=== PATIENT | female | born 1975 | race Caucasian/White ===

== ENCOUNTER 2022-03-04 07:43 | Emergency (ER) | payer OTHER ==
[~2022-03-04] VITALS: Ht 162.6 cm; Wt 106.8 kg
[2022-03-04 07:53] VITALS: BP 116/67
[2022-03-04 08:01] VITALS: BP 100/71
[2022-03-04] MEDS ORDERED: PREDNISONE1 MG PO (08:09)
[2022-03-04] MEDS ORDERED: ZPAK PO (08:09)
[2022-03-04] MEDS ORDERED: ROBITUSSIN AC10 ML PO (08:23)
[2022-03-04 08:29] LABS: HEMATOCRIT 38.6 % (37.0-47.0); HEMOGLOBIN 12.3 g/dl (12.0-16.0); IMMATURE GRANULOCYTES 0.3 % (0.0-5.0); MEAN CELL VOLUME 85.2 fL CALC (80.0-100.0); MEAN CORPUSCULAR HGB 27.2 pG CALC (26.0-32.0); MEAN CORPUSCULAR HGB CONC 31.9 g/dL CAL (32.0-36.0); NEUT# 2.3 thou/uL (2.00-7.15); RED BLOOD COUNT 4.53 mill/uL (4.20-5.60); RED CELL DISTRI WIDTH 14.8 % (11.5-15.5)
[2022-03-04 08:31] VITALS: BP 84/58
[2022-03-04 08:39] VITALS: BP 110/52
[2022-03-04 09:01] VITALS: BP 112/53
[2022-03-04 09:11] VITALS: BP 112/53
== END 2022-03-04 09:15 | disposition home or self-care (01) | DRG 179 ==
LOC: ED 07:43
PROVIDERS: Family Medicine
DX: U07.1 COVID-19 (principal); R50.9 Fever, unspecified; R05.9 Cough, unspecified; R51.9 Headache, unspecified; M79.10 Myalgia, unspecified site; F17.210 Nicotine dependence, cigarettes, uncomplicated

== ENCOUNTER 2022-09-13 20:17 | Emergency (ER) | payer SELFPAY ==
[~2022-09-13] VITALS: Ht 162.6 cm; Wt 125.0 kg
[~2022-09-13 20:17] MED LIST: PREDNISONE1 MG PO; ROBITUSSIN AC10 ML PO; ZPAK PO
[2022-09-13 23:13] LABS: BASO% 0.5 % (0-3); EOS% 6.7 % (0-8); HEMATOCRIT 37.8 % (37.0-47.0); HEMOGLOBIN 11.9 g/dl (12.0-16.0); IMMATURE GRANULOCYTES 0.1 % (0.0-5.0); MEAN CELL VOLUME 84.4 fL CALC (80.0-100.0); MEAN CORPUSCULAR HGB 26.6 pG CALC (26.0-32.0); MEAN CORPUSCULAR HGB CONC 31.5 g/dL CAL (32.0-36.0); MONO% 8.8 % (2-13); NEUT# 5.85 thou/uL (2.00-7.15); NEUT% 60.9 % (42-76); RED BLOOD COUNT 4.48 mill/uL (4.20-5.60); RED CELL DISTRI WIDTH 15.9 % (11.5-15.5)
[2022-09-13 23:24] LABS: ALBUMIN 4.3 g/dL (3.2-5.0); ALKALINE PHOSPHATASE 66 u/l (38-126); ANION GAP 8 (6-22 (CALC)); BILIRUBIN, TOTAL 0.3 mg/dL (0.0-1.4); BUN 12 mg/dL (7-17); BUN/CREATININE RATIO 14 (12-20 (CALC)); CARBON DIOXIDE 28 mmol/l (22-30); CHLORIDE 106 mmol/l (95-108); CREATININE 0.9 mg/dL (0.5-1.0); GFR FOR AFR.AMER. > 60 ML/MIN (>=60 (CALC)); GFR OTHER RACES > 60 ML/MIN (>=60 (CALC)); POTASSIUM 3.8 mmol/l (3.5-5.1); SGOT/AST 28 u/l (14-36); SODIUM 138 mmol/l (137-146); TOTAL PROTEIN 7.7 g/dL (6.3-8.2)
[2022-09-14 00:05] VITALS: BP 126/66
[2022-09-14 00:57] LABS: URINE BILIRUBIN - DIPSTICK NEGATIVE (NEGATIVE); URINE BLOOD DIPSTICK SMALL (NEGATIVE); URINE COLOR YELLOW; URINE GLUCOSE - DIPSTICK NEGATIVE (NEGATIVE); URINE KETONE NEGATIVE (NEGATIVE); URINE LEUK ESTERASE NEGATIVE (NEGATIVE); URINE NITRITE - DIPSTICK NEGATIVE (Negative); URINE PROTEIN - DIPSTICK NEGATIVE (NEG-TRACE); URINE SPECIFIC GRAVITY >=1.030; URINE UROBILINOGEN - DIPSTICK 0.2 E.U./dL (0.2)
[2022-09-14 00:58] LABS: URINE BACTERIA FEW hpf; URINE EPITHELIAL CELLS FEW EPI/hpf (0-FEW); URINE WBC 0-2 WBC/hpf (0-5)
[2022-09-14 01:15] LABS: TSH, 3RD GENERATION 2.16 uIU/mL (0.47 - 4.68)
[2022-09-14 01:26] VITALS: BP 126/66
== END 2022-09-14 01:36 | disposition home or self-care (01) | DRG 607 ==
LOC: ED 20:17
PROVIDERS: Emergency Medicine
DX: R22.43 Localized swelling, mass and lump, lower limb, bilateral (principal); E27.40 Unspecified adrenocortical insufficiency